=== PATIENT | female | born 1950 | race Caucasian/White ===

== ENCOUNTER 2017-06-11 19:14 | Emergency (ER) | payer OTHER, MEDICAID ==
[~2017-06-11] VITALS: Ht 152.4 cm; Wt 81.6 kg
[~2017-06-11 19:14] MED LIST: ACET325T53 PO; AMIT10TA6 PO; ASPI-1063 PO; BACL10TA PO; DICL100G16 TP; DICL50TA9 PO; DULO60CA64 PO; FAMO20TA8 PO; FLUT16SP24 NS; GLIP10TA74 PO; GLU500 PO; HYDR-3109 PO; INSU100V32 SUBCUT; INSU100V9 SUBCUT; LORA-258 PO; LYR50 PO; METH10TA4 PO; MISO200T PO; NIFE-2 PO; OXYC60TA8 PO; PATANOL BOTH EYES; TRAZ-126 PO; TRIA15CR4 TP; TRIA60LO3 TP; ZOLP12.550 PO
[2017-06-11 19:17] VITALS: BP_SYST 145
[2017-06-11 20:37] LABS: BASOPHILS # (AUTO) 0.1 K/uL (0.0-0.2); BASOPHILS % (AUTO) 0.7 % (0.0-2.0); HEMATOCRIT 38.6 % (36-48); HEMOGLOBIN 12.4 g/dL (12.0-16.0); LYMPHOCYTES # (AUTO) 1.3 K/uL (1.0-5.5); LYMPHOCYTES % (AUTO) 13.9 % (20.5-51.5); MEAN CORPUSCULAR HEMOGLOBIN 28 pg (27-31); MEAN CORPUSCULAR HGB CONC 32 % (32-36); MEAN CORPUSCULAR VOLUME 87 fL (79.0-98.0); MONOCYTES # (AUTO) 0.2 K/uL (0.0-1.0); NEUTROPHILS % (AUTO) 83.4 % (40.0-70.0); PLATELET COUNT (AUTO) 243 K/uL (130-430); RED BLOOD CELL COUNT(AUTO) 4.42 MIL/uL (4.2-6.2); RED CELL DISTRIBUTION WIDTH 14.3 % (9.0-15.0); WHITE BLOOD COUNT (AUTO) 9.6 K/uL (4.8-10.8)
[2017-06-11 20:48] LABS: INR 1.1 (0.8-1.2)
[2017-06-11 20:50] LABS: CALCIUM 9.2 mg/dL (8.4-11.0); CREATININE 0.95 mg/dL (0.55-1.30); POTASSIUM 4.2 mmol/L (3.5-5.1)
[2017-06-11 21:50] VITALS: BP_SYST 144
== END 2017-06-11 21:50 | disposition home or self-care (01) ==
LOC: SED 19:14
DX: R04.0 Epistaxis (principal); E11.9 Type 2 diabetes mellitus without complications; I10 Essential (primary) hypertension; Z79.899 Other long term (current) drug therapy; Z79.4 Long term (current) use of insulin
CPT/HCPCS: 36415; 80048; 85025; 85610-TC; 85730-TC; 93005; 99285

== ENCOUNTER 2018-09-04 12:08 | Inpatient (IN) | payer OTHER, MEDICAID ==
[~2018-09-04] VITALS: Ht 152.4 cm; Wt 80.7 kg
[~2018-09-04 12:08] MED LIST changes: -ASPI-1063 PO; +ASPI-1153 PO; -DICL100G16 TP; +DICL100G19 TP; +GLIP10TA3 PO; -GLIP10TA74 PO; -TRAZ-126 PO; +TRAZ-219 PO; +TRIA60LO13 TP; -TRIA60LO3 TP
[2018-09-04] MEDS ORDERED: NACL 0.9% 1,000 ML IV ONE (12:13)
[2018-09-04] MEDS ORDERED: LEVALBUTEROL HCL 0.63 MG/3 ML VIAL.NEB IH ONE (12:15)
[2018-09-04] MEDS ORDERED: methylPREDNISolone SOD SUCC/PF 62.5 MG/ML VIAL IVP ONE (12:15)
[2018-09-04] MEDS ORDERED: ALBUTEROL SULFATE 0.083% 2.5 MG/3 ML VIAL.NEB IH ONE (12:15)
[2018-09-04] MEDS ORDERED: ONDANSETRON HCL 4 MG/2 ML VIAL IVP ONE (12:15)
[2018-09-04 12:25] VITALS: BP_SYST 142
[2018-09-04] MEDS ORDERED: KETOROLAC TROMETHAMINE 30 MG VIAL IVP ONE (12:45)
[2018-09-04 12:59] LABS: HEMATOCRIT 35.7 % (36-48); HEMOGLOBIN 11.5 g/dL (12.0-16.0); MEAN CORPUSCULAR HEMOGLOBIN 28 pg (27-31); MEAN CORPUSCULAR HGB CONC 32 % (32-36); MEAN CORPUSCULAR VOLUME 86 fL (79.0-98.0); RED BLOOD CELL COUNT(AUTO) 4.17 MIL/uL (4.2-6.2); WHITE BLOOD COUNT (AUTO) 6.4 K/uL (4.8-10.8)
[2018-09-04 13:00] LABS: BASOPHILS % (AUTO) 0.4 % (0.0-2.0); EOSINOPHILS % (AUTO) 0.7 % (0.0-4.0); LYMPHOCYTES # (AUTO) 1.1 K/uL (1.0-5.5); LYMPHOCYTES % (AUTO) 17.2 % (20.5-51.5); MONOCYTES # (AUTO) 0.5 K/uL (0.0-1.0); MONOCYTES % (AUTO) 8.6 % (1.7-9.3); NEUTROPHILS # (AUTO) 4.6 K/uL (1.8-7.7); NEUTROPHILS % (AUTO) 73.1 % (40.0-70.0); PLATELET COUNT (AUTO) 180 K/uL (130-430); RED CELL DISTRIBUTION WIDTH 15.8 % (9.0-15.0)
[2018-09-04 13:11] LABS: CALCIUM 8.8 mg/dL (8.4-11.0); CREATININE 1.06 mg/dL (0.55-1.30); POTASSIUM 4.1 mmol/L (3.5-5.1)
[2018-09-04 13:16] LABS: ALBUMIN 3.5 g/dL (3.4-4.8); TOTAL BILIRUBIN 0.3 mg/dL (0.0-1.0)
[2018-09-04 13:17] LABS: INR 1.1 (0.8-1.2); PROTHROMBIN TIME 10.8 SECS (9.5-12.5)
[2018-09-04 13:27] LABS: BILIRUBIN,URINE NEGATIVE (NEGATIVE); CLARITY/URINE CLEAR (CLEAR); COLOR,URINE YELLOW (YELLOW); GLUCOSE,URINE NEGATIVE (NEGATIVE); KETONES,URINE NEGATIVE (NEGATIVE); LEUKOCYTE ESTERASE ,URINE NEGATIVE (NEGATIVE); NITRITE, URINE NEGATIVE (NEGATIVE); PROTEIN URINE NEGATIVE (NEGATIVE); UROBILINOGEN,URINE 0.2 (0.2-1.0)
[2018-09-04 13:29] LABS: BLOOD, URINE TRACE (NEGATIVE)
[2018-09-04 13:38] LABS: BACTERIA,URINE FEW /HPF (None Seen); MUCUS,URINE None Seen /LPF (None Seen); YEAST,URINE None Seen /HPF (None Seen)
[2018-09-04 13:39] LABS: WBC,URINE 0-3 /HPF (0-3)
[2018-09-04 13:53] LABS: CKMB RELATIVE INDEX 1.8 (0.0-2.9); CREATINE KINASE MB 11.6 ng/mL (0-3.6)
[2018-09-04] MEDS ORDERED: LAM100 PO (16:11)
[2018-09-04] MEDS ORDERED: CALC-823 PO (16:11)
[2018-09-04] MEDS ORDERED: CARB15DR OP (16:11)
[2018-09-04] MEDS ORDERED: INSU100I26 SQ (16:11)
[2018-09-04] MEDS ORDERED: LOSA50TA3 PO (16:11)
[2018-09-04] MEDS ORDERED: SSREG SUBCUT (16:11)
[2018-09-04] MEDS ORDERED: ARIP10TA9 PO (16:11)
[2018-09-04] MEDS ORDERED: TEMA30CA5 PO (16:11)
[2018-09-04] MEDS ORDERED: DULO60CA41 PO (16:11)
[2018-09-04] MEDS ORDERED: POLY17PO4 PO (16:11)
[2018-09-04] MEDS ORDERED: LORA-259 PO (16:11)
[2018-09-04] MEDS ORDERED: HYDR-4274 PO (16:11)
[2018-09-04] MEDS ORDERED: GLU500 PO (16:11)
[2018-09-04] MEDS ORDERED: MAGN400T10 PO (16:11)
[2018-09-04] MEDS ORDERED: MELO15TA13 PO (16:11)
[2018-09-04] MEDS ORDERED: MOME17SP NS (16:11)
[2018-09-04] MEDS ORDERED: TRAZ300T2 PO (16:11)
[2018-09-04] MEDS ORDERED: BACL20TA PO (16:11)
[2018-09-04] MEDS ORDERED: FENO48TA4 PO (16:11)
[2018-09-04] MEDS ORDERED: FLUT16SP16 NS (16:11)
[2018-09-04] MEDS ORDERED: OXYC10TA56 PO (16:11)
[2018-09-04] MEDS ORDERED: ASPIRIN 81 MG TAB.CHEW ONE (16:27)
[2018-09-04] MEDS ORDERED: LORazepam 2 MG/ML VIAL IVP PRN (16:30)
[2018-09-04] MEDS ORDERED: ZOLPIDEM TARTRATE 5 MG TABLET PO PRN (16:30)
[2018-09-04] MEDS ORDERED: MORPHINE 4 MG/ML INJ. SYRINGE IVP PRN (16:30)
[2018-09-04] MEDS ORDERED: HYDROcodone/ACETAMIN 5-325 MG TAB (NORCO/ VICODIN) PO PRN (16:30)
[2018-09-04] MEDS ORDERED: ACETAMINOPHEN 325 MG TABLET PO PRN (16:30)
[2018-09-04] MEDS ORDERED: MILK OF MAGNESIA 30 ML UDC PO PRN (16:30)
[2018-09-04] MEDS ORDERED: ONDANSETRON HCL 4 MG/2 ML VIAL IVP PRN (16:30)
[2018-09-04] MEDS ORDERED: DOCUSATE SODIUM 100 MG CAPSULE PO PRN (16:30)
[2018-09-04] MEDS ORDERED: IPRATROPIUM/ALBUTEROL SULFATE 3 ML AMPUL.NEB (DUONEB) INH PRN (16:30)
[2018-09-04] MEDS ORDERED: MUPIROCIN 2% TOPICAL OINTMENT 22 GM TP PRN (16:30)
[2018-09-04 16:59] VITALS: BP_SYST 139
[2018-09-04] MEDS ORDERED: D5W 1,000 ML IV PRN (17:00)
[2018-09-04] MEDS ORDERED: DEXTROSE 50%-WATER 50 ML DISP.SYRIN IVP PRN (17:00)
[2018-09-04] MEDS ORDERED: GLUCOSE 15 GM GEL (in 37.5 GM TUBE) PO PRN (17:00)
[2018-09-04] MEDS ORDERED: ASPIRIN 81 MG TAB.CHEW PO ONE (17:00)
[2018-09-04] MEDS: NACL 0.9% 1,000 ML IV SCH (17:22)
[2018-09-04] MEDS: INSULIN REGULAR, HUMAN 100 UNITS/ML, 10 ML VIAL (novoLIN R) SUBCUT PRN ×2 (17:28→20:56)
[2018-09-04 17:40] LABS: PHOSPHORUS 2.7 mg/dL (2.7-4.5); THYROID STIMULATING HORMONE 0.15 uIu/mL (0.36-3.74)
[2018-09-04] MEDS ORDERED: TEMAZEPAM 15 MG CAPSULE PO SCH (17:45)
[2018-09-04] MEDS ORDERED: CARBOXYMETHYLCELLULOSE SODIUM OP SCH (17:45)
[2018-09-04] MEDS ORDERED: HYDROcodone/ACETAMIN 10-325 MG TAB PO PRN (17:45)
[2018-09-04 18:06] LABS: CREATINE KINASE MB 9.5 ng/mL (0-3.6)
[2018-09-04 18:11] VITALS: BP_SYST 139
[2018-09-04] MEDS: IPRATROPIUM/ALBUTEROL SULFATE 3 ML AMPUL.NEB (DUONEB) INH SCH (19:31)
[2018-09-04] MEDS: DULoxetine HCL 30 MG CAPSULE.DR (CYMBALTA) PO SCH (19:41)
[2018-09-04] MEDS: metFORMIN HCL 500 MG TABLET PO SCH (19:41)
[2018-09-04] MEDS: BUDESONIDE 0.5 MG/2 ML AMPUL.NEB INH SCH (19:42)
[2018-09-04 20:00] VITALS: BP_SYST 116
[2018-09-04] MEDS: oxyCODONE HCL 10 MG TAB.ER.12H PO SCH (20:53)
[2018-09-04] MEDS: traZODone HCL 50 MG TABLET (DESYREL) PO SCH (20:53)
[2018-09-04] MEDS: METOPROLOL TARTRATE 25 MG TABLET PO SCH (20:53)
[2018-09-04] MEDS: BACLOFEN 10 MG TABLET PO SCH (20:54)
[2018-09-04] MEDS: INSULIN GLARGINE 100 UNITS/ML 10 ML VIAL SUBCUT SCH (20:56)
[2018-09-04] MEDS ORDERED: LamoTRIgine 100 MG TABLET PO SCH (21:00)
[2018-09-04] MEDS ORDERED: CALCIUM CARBONATE/VITAMIN D3 1 TAB TABLET PO SCH (21:00)
[2018-09-04 21:16] LABS: BENZODIAZEPINE, URINE POSITIVE (NEG <=150); OPIATE, URINE POSITIVE (NEG <=100); URINE OXYCODONE SCREEN POSITIVE (NEG <=100)
[2018-09-04 21:17] LABS: BARBITURATE, URINE NEGATIVE (NEG <=200); CANNABINOID, URINE NEGATIVE (NEG <=50); COCAINE, URINE NEGATIVE (NEG <=150); METHAMPHETAMINES SCREEN,URINE NEGATIVE (NEG <=500); PHENCYCLIDINE SCREEN,URINE NEGATIVE (NEG <=25); UR TRICYCLIC ANTIDEPRESSANTS NEGATIVE (NEG <=300); URINE AMPHETAMINE NEGATIVE (NEG <=500); URINE METHADONE NEGATIVE (NEG <=200); URINE PROPOXYPHENE SCREEN NEGATIVE (NEG <=300)
[2018-09-04] MEDS ORDERED: SODIUM CL 3% FOR INHALATION 15 ML VIAL.NEB INH SCH (21:30)
[2018-09-04] MEDS ORDERED: PEG 400/HYPROMELLOSE/GLYCERIN 15 ML DROPS OP PRN (23:15)
[2018-09-05 00:21] VITALS: BP_SYST 100
[2018-09-05 01:25] LABS: CREATINE KINASE MB 6.3 ng/mL (0-3.6)
[2018-09-05] MEDS: IPRATROPIUM/ALBUTEROL SULFATE 3 ML AMPUL.NEB (DUONEB) INH SCH ×4 (01:27→19:44)
[2018-09-05] MEDS: INSULIN REGULAR, HUMAN 100 UNITS/ML, 10 ML VIAL (novoLIN R) SUBCUT PRN ×4 (06:03→21:44)
[2018-09-05] MEDS: BUDESONIDE 0.5 MG/2 ML AMPUL.NEB INH SCH ×2 (07:17→19:44)
[2018-09-05 07:30] LABS: CALCIUM 8.9 mg/dL (8.4-11.0); CREATININE 0.87 mg/dL (0.55-1.30)
[2018-09-05 07:34] LABS: PHOSPHORUS 2.9 mg/dL (2.7-4.5)
[2018-09-05 07:54] LABS: HEMATOCRIT 32.1 % (36-48); HEMOGLOBIN 10.3 g/dL (12.0-16.0); MEAN CORPUSCULAR HEMOGLOBIN 28 pg (27-31); MEAN CORPUSCULAR HGB CONC 32 % (32-36); MEAN CORPUSCULAR VOLUME 87 fL (79.0-98.0); RED BLOOD CELL COUNT(AUTO) 3.71 MIL/uL (4.2-6.2); WHITE BLOOD COUNT (AUTO) 4.2 K/uL (4.8-10.8)
[2018-09-05 07:55] LABS: BASOPHILS % (AUTO) 0.1 % (0.0-2.0); LYMPHOCYTES % (AUTO) 24.3 % (20.5-51.5); MONOCYTES # (AUTO) 0.5 K/uL (0.0-1.0); MONOCYTES % (AUTO) 12.3 % (1.7-9.3); NEUTROPHILS # (AUTO) 2.6 K/uL (1.8-7.7); NEUTROPHILS % (AUTO) 63.3 % (40.0-70.0); PLATELET COUNT (AUTO) 179 K/uL (130-430); RED CELL DISTRIBUTION WIDTH 16.4 % (9.0-15.0)
[2018-09-05 08:00] LABS: CKMB RELATIVE INDEX 1.9 (0.0-2.9); CREATINE KINASE MB 4.1 ng/mL (0-3.6)
[2018-09-05] MEDS: FENOFIBRATE 160 MG TABLET PO SCH (08:07)
[2018-09-05] MEDS: ASPIRIN 81 MG TAB.CHEW PO SCH (08:07)
[2018-09-05] MEDS: methylPREDNISolone SOD SUCC 40 MG/ML VIAL IVP SCH (08:07)
[2018-09-05] MEDS: CALCIUM CARBONATE/VITAMIN D3 1 TAB TABLET PO SCH ×2 (08:08→17:05)
[2018-09-05] MEDS: MELOXICAM 7.5 MG TABLET PO SCH (08:08)
[2018-09-05] MEDS: BACLOFEN 10 MG TABLET PO SCH ×3 (08:08→20:46)
[2018-09-05] MEDS: metFORMIN HCL 500 MG TABLET PO SCH ×2 (08:08→17:05)
[2018-09-05] MEDS: METOPROLOL TARTRATE 25 MG TABLET PO SCH ×2 (08:09→20:48)
[2018-09-05] MEDS: HEPARIN SODIUM,PORCINE 5000 UNITS/ML VIAL SUBCUT SCH ×2 (08:11→20:53)
[2018-09-05] MEDS ORDERED: LamoTRIgine 100 MG TABLET ONE (08:11)
[2018-09-05] MEDS ORDERED: FENOFIBRATE NANOCRYSTALLIZED 48 MG TABLET (TRICOR) PO SCH (09:00)
[2018-09-05] MEDS ORDERED: LOSARTAN POTASSIUM 50 MG TABLET (COZAAR) PO SCH (09:00)
[2018-09-05] MEDS: ARIPiprazole 5 MG TAB PO SCH (10:11)
[2018-09-05] MEDS: oxyCODONE HCL 10 MG TAB.ER.12H PO SCH ×2 (10:12→20:50)
[2018-09-05] MEDS: NACL 0.9% 1,000 ML IV SCH (10:13)
[2018-09-05] MEDS: LOSARTAN POTASSIUM 25 MG TABLET PO SCH (10:15)
[2018-09-05 11:39] VITALS: BP_SYST 123
[2018-09-05 15:48] VITALS: BP_SYST 153
[2018-09-05] MEDS: DULoxetine HCL 30 MG CAPSULE.DR (CYMBALTA) PO SCH (17:05)
[2018-09-05] MEDS: LamoTRIgine 100 MG TABLET ONE ×2 (20:17→20:53)
[2018-09-05 20:43] VITALS: BP_SYST 132
[2018-09-05] MEDS: traZODone HCL 50 MG TABLET (DESYREL) PO SCH (20:47)
[2018-09-05] MEDS: INSULIN GLARGINE 100 UNITS/ML 10 ML VIAL SUBCUT SCH (21:42)
[2018-09-05 22:40] VITALS: BP_SYST 144
[2018-09-06] MEDS: IPRATROPIUM/ALBUTEROL SULFATE 3 ML AMPUL.NEB (DUONEB) INH SCH ×2 (00:37→07:15)
[2018-09-06] MEDS: NACL 0.9% 1,000 ML IV SCH (03:16)
[2018-09-06 06:27] LABS: CALCIUM 9.5 mg/dL (8.4-11.0); CREATININE 0.88 mg/dL (0.55-1.30); POTASSIUM 4.9 mmol/L (3.5-5.1)
[2018-09-06] MEDS: BUDESONIDE 0.5 MG/2 ML AMPUL.NEB INH SCH (07:15)
[2018-09-06 07:32] LABS: HEMATOCRIT 30.8 % (36-48); HEMOGLOBIN 9.9 g/dL (12.0-16.0); RED BLOOD CELL COUNT(AUTO) 3.56 MIL/uL (4.2-6.2); WHITE BLOOD COUNT (AUTO) 6.6 K/uL (4.8-10.8)
[2018-09-06 07:33] LABS: MEAN CORPUSCULAR HEMOGLOBIN 28 pg (27-31); MEAN CORPUSCULAR HGB CONC 32 % (32-36); MEAN CORPUSCULAR VOLUME 87 fL (79.0-98.0); RED CELL DISTRIBUTION WIDTH 16.1 % (9.0-15.0)
[2018-09-06 08:20] VITALS: BP_SYST 161
[2018-09-06] MEDS: methylPREDNISolone SOD SUCC 40 MG/ML VIAL IVP SCH (08:20)
[2018-09-06] MEDS: oxyCODONE HCL 10 MG TAB.ER.12H PO SCH (08:20)
[2018-09-06] MEDS: metFORMIN HCL 500 MG TABLET PO SCH (08:20)
[2018-09-06] MEDS: ARIPiprazole 5 MG TAB PO SCH (08:20)
[2018-09-06] MEDS: METOPROLOL TARTRATE 25 MG TABLET PO SCH (08:21)
[2018-09-06] MEDS: BACLOFEN 10 MG TABLET PO SCH (08:23)
[2018-09-06] MEDS: CALCIUM CARBONATE/VITAMIN D3 1 TAB TABLET PO SCH (08:23)
[2018-09-06] MEDS: ASPIRIN 81 MG TAB.CHEW PO SCH (08:23)
[2018-09-06] MEDS: FENOFIBRATE 160 MG TABLET PO SCH (08:23)
[2018-09-06] MEDS: MELOXICAM 7.5 MG TABLET PO SCH (08:24)
[2018-09-06] MEDS: LOSARTAN POTASSIUM 25 MG TABLET PO SCH (08:25)
[2018-09-06] MEDS: HEPARIN SODIUM,PORCINE 5000 UNITS/ML VIAL SUBCUT SCH (08:26)
[2018-09-06 09:51] LABS: EOSINOPHILS % (AUTO) 0.7 % (0.0-4.0); LYMPHOCYTES % (AUTO) 40.3 % (20.5-51.5); NEUTROPHILS % (AUTO) 49.9 % (40.0-70.0); PLATELET COUNT (AUTO) 193 K/uL (130-430)
[2018-09-06 09:52] LABS: BASOPHILS % (AUTO) 0.1 % (0.0-2.0); LYMPHOCYTES # (AUTO) 2.7 K/uL (1.0-5.5); MONOCYTES # (AUTO) 0.6 K/uL (0.0-1.0); NEUTROPHILS # (AUTO) 3.3 K/uL (1.8-7.7)
[2018-09-06] MEDS ORDERED: cloNIDine HCL 0.1 MG TABLET PO ONE (10:00)
[2018-09-06 10:10] VITALS: BP_SYST 142
[2018-09-06 11:18] VITALS: BP_SYST 166
== END 2018-09-06 11:25 | disposition home or self-care (01) | DRG 202 ==
LOC: SED 12:08 → STU 16:01 → SMU 09-05 23:39
PROVIDERS: ADMIT Family Medicine; ATTEND Family Medicine
DX: J20.8 Acute bronchitis due to other specified organisms (principal); E87.1 Hypo-osmolality and hyponatremia; I24.8 Other forms of acute ischemic heart disease; I10 Essential (primary) hypertension; E11.9 Type 2 diabetes mellitus without complications; E66.9 Obesity, unspecified; M10.9 Gout, unspecified; G44.209 Tension-type headache, unspecified, not intractable; M19.90 Unspecified osteoarthritis, unspecified site; E05.90 Thyrotoxicosis, unspecified without thyrotoxic crisis or storm; E78.5 Hyperlipidemia, unspecified; F32.9 Major depressive disorder, single episode, unspecified; F41.9 Anxiety disorder, unspecified; G89.4 Chronic pain syndrome; M79.7 Fibromyalgia; Z79.82 Long term (current) use of aspirin; Z79.84 Long term (current) use of oral hypoglycemic drugs; Z68.34 Body mass index [BMI] 34.0-34.9, adult
CPT/HCPCS: 36415; 70450-TC; 71045; 73560-TC; 80048; 80053; 80061; 80307; 81000-TC; 82550-TC; 82553-TC; 82962; 83036; 83605; 83690-TC; 83735-TC; 83880; 84100-TC; 84443-TC; 84484; 85025; 85610-TC; 85730-TC; 86710; 87040-TC; 87070-TC; 87205-TC; 93005; 93306; 94640; 94760; 96361; 96374; 96375; 97116-GP; 97530-GP; 99285; G0378; J1030; J1644; J1815; J1885; J2060; J2405; J2930; J7030; J7613; J7614; J7620; J7626

== ENCOUNTER 2022-08-02 11:04 | Emergency (ER) | payer OTHER, MEDICAID ==
[~2022-08-02] VITALS: Ht 165.1 cm; Wt 90.7 kg
[~2022-08-02 11:04] MED LIST changes: -ACET325T53 PO; -AMIT10TA6 PO; +ARIP10TA9 PO; -ASPI-1153 PO; -BACL10TA PO; +BACL20TA PO; +CALC-823 PO; +CARB15DR OP; -DICL100G19 TP; -DICL50TA9 PO; +DULO60CA42 PO; -DULO60CA64 PO; -FAMO20TA8 PO; +FENO48TA8 PO; -FLUT16SP24 NS; -GLIP10TA3 PO; -HYDR-3109 PO; +HYDR-4274 PO; +INSU100I26 SQ; -INSU100V32 SUBCUT; -INSU100V9 SUBCUT; +LAM100 PO; -LORA-258 PO; +LORA-259 PO; +LOSA50TA3 PO; -LYR50 PO; +MAGN400T10 PO; +MELO15TA13 PO; -METH10TA4 PO; -MISO200T PO; -NIFE-2 PO; +OXYC10TA56 PO; -OXYC60TA8 PO; +POLY17PO4 PO; +SSREG SUBCUT; +TEMA30CA5 PO; -TRAZ-219 PO; +TRAZ300T2 PO; -TRIA15CR4 TP; -TRIA60LO13 TP; -ZOLP12.550 PO
[2022-08-02 11:08] VITALS: BP_SYST 146
--- NOTE | 2022-08-02 11:13 | NUR ---
Patient to ER bed 04 to gown for evaluation. Side rails up.
--- NOTE | 2022-08-02 12:20 | NUR ---
Note undone in EDM - 08/02/22 at 1923 by KURT Patient given written and verbal discharge instructions and verbalizes understanding. ER discussed with patient the results and treatment provided. Patient in stable condition. ID arm band removed. Rx of NONE given. Patient educated on pain management and to follow up with PMD. Pain Scale 0/10. Opportunity for questions provided and answered. Medication side effect fact sheet provided.
--- NOTE | 2022-08-02 12:33 | NUR ---
ER at bedside examining patient.
[2022-08-02] MEDS ORDERED: KETOROLAC TROMETHAMINE 60 MG/2 ML VIAL IM ONE (12:45)
--- NOTE | 2022-08-02 13:20 | NUR ---
Patient given written and verbal discharge instructions and verbalizes understanding. ER MD discussed with patient the results and treatment provided. Patient in stable condition. ID arm band removed. Rx of NONE given. Patient educated on pain management and to follow up with PMD. Pain Scale 0/10. Opportunity for questions provided and answered. Medication side effect fact sheet provided.
== END 2022-08-02 12:20 | disposition home or self-care (01) ==
LOC: SED 11:04
DX: R10.9 Unspecified abdominal pain (principal); I10 Essential (primary) hypertension; E11.9 Type 2 diabetes mellitus without complications; Z79.4 Long term (current) use of insulin; Z79.899 Other long term (current) drug therapy
CPT/HCPCS: 99283; 81002; 96372; J1885

== ENCOUNTER 2023-12-02 12:58 | Inpatient (IN) | payer OTHER, MEDICAID ==
[~2023-12-02] VITALS: Ht 152.4 cm; Wt 76.2 kg
[~2023-12-02 12:58] MED LIST changes: +LOSA-413 PO; -LOSA50TA3 PO
[2023-12-02 13:05] VITALS: BP_SYST 116; PULSE 86; RESP 18; TEMP 98.7; O2SAT 96
[2023-12-02 14:35] LABS: BLOOD GAS BASE EXCESS 0.4 mmol/L (-3.0-3.0); BLOOD GAS HCO3 26.5 mmol/L (21.0-27.0)
[2023-12-02 14:38] LABS: ABG O2 SAT% ESTIMATE 93.7 % (94.0-100.0); ALLEN'S TEST POSITIVE (P); BLOOD GAS PCO2 47.9 mmHg (35.0-45.0); BLOOD GAS PO2 71.7 mmHg (75.0-100.0)
[2023-12-02] MEDS: KETOROLAC TROMETHAMINE 30 MG VIAL IVP ONE (14:48)
[2023-12-02 15:20] LABS: BASOPHILS % (AUTO) 0.3 % (0.0-2.0); EOSINOPHILS # (AUTO) 0.4 K/uL (0.0-0.4); EOSINOPHILS % (AUTO) 6.4 % (0.0-4.0); HEMATOCRIT 32.8 % (36-48); LYMPHOCYTES # (AUTO) 1.8 K/uL (1.0-5.5); LYMPHOCYTES % (AUTO) 26.2 % (20.5-51.5); MEAN CORPUSCULAR HEMOGLOBIN 31 pg (27-31); MEAN CORPUSCULAR HGB CONC 34 % (32-36); MEAN CORPUSCULAR VOLUME 92 fL (79.0-98.0); MONOCYTES # (AUTO) 0.8 K/uL (0.0-1.0); MONOCYTES % (AUTO) 11.3 % (1.7-9.3); NEUTROPHILS # (AUTO) 3.9 K/uL (1.8-7.7); NEUTROPHILS % (AUTO) 55.8 % (40.0-70.0); PLATELET COUNT (AUTO) 139 K/uL (130-430); RED BLOOD CELL COUNT(AUTO) 3.55 MIL/uL (4.2-6.2); RED CELL DISTRIBUTION WIDTH 13.6 % (9.0-15.0)
[2023-12-02 15:23] LABS: ALANINE AMINOTRANSFERASE 13 U/L (12-78); ANION GAP 8 (5-15); ASPARTATE AMINOTRANSFERASE 15 U/L (10-37); CALCIUM 7.7 mg/dL (8.4-11.0); CARBON DIOXIDE 29 mmol/L (23-29); CHLORIDE 99 mmol/L (98-107); CREATININE 1.27 mg/dL (0.55-1.30); GLUCOSE 139 mg/dL (74-106); POTASSIUM 4.2 mmol/L (3.5-5.1); SODIUM SERUM 136 mmol/L (136-145); TOTAL BILIRUBIN 0.3 mg/dL (0.0-1.0); TOTAL PROTEIN, SERUM 6.7 g/dL (6.4-8.3); UREA NITROGEN, BLOOD 21 mg/dL (8-21)
[2023-12-02 15:25] LABS: BILIRUBIN,DIRECT 0.1 mg/dL (0.0-0.3)
[2023-12-02 16:20] VITALS: PULSE 85; O2SAT 95
[2023-12-02] MEDS ORDERED: LORazepam 2 MG/ML VIAL IVP PRN (16:30)
[2023-12-02] MEDS ORDERED: MUPIROCIN 2% TOPICAL OINTMENT 22 GM NS PRN (16:30)
[2023-12-02] MEDS ORDERED: DEXTROSE 50% JECT 50 ML DISP.SYRIN IVP PRN (16:30)
[2023-12-02] MEDS ORDERED: ONDANSETRON HCL 4 MG/2 ML VIAL IVP PRN (16:30)
[2023-12-02] MEDS ORDERED: MAGNESIUM SULFATE 50 ML IV PRN (16:30)
[2023-12-02] MEDS ORDERED: IPRATROPIUM/ALBUTEROL SULFATE 3 ML AMPUL.NEB (DUONEB) INH PRN (16:30)
[2023-12-02] MEDS ORDERED: DOCUSATE SODIUM 100 MG CAPSULE PO PRN (16:30)
[2023-12-02] MEDS ORDERED: POTASSIUM CHLORIDE 20 MEQ TABLET.ER PO PRN (16:30)
[2023-12-02] MEDS ORDERED: MORPHINE 2 MG/ML INJ. SYRINGE IVP PRN (16:30)
[2023-12-02] MEDS ORDERED: iohexoL 350 mgI/mL, 100 ML INFUS..BTL IV ONE (16:39)
[2023-12-02] MEDS ORDERED: ACETAMINOPHEN 500 MG TABLET PO PRN ×2 (16:45)
[2023-12-02 17:10] LABS: BILIRUBIN,URINE NEGATIVE (NEGATIVE); BLOOD, URINE 1+ (NEGATIVE); CLARITY/URINE CLEAR (CLEAR); COLOR,URINE YELLOW (YELLOW); GLUCOSE,URINE NEGATIVE (NEGATIVE); KETONES,URINE NEGATIVE (NEGATIVE); LEUKOCYTE ESTERASE ,URINE NEGATIVE (NEGATIVE); NITRITE, URINE NEGATIVE (NEGATIVE); PROTEIN URINE NEGATIVE (NEGATIVE); UROBILINOGEN,URINE 0.2 (0.2-1.0)
[2023-12-02 17:33] LABS: BACTERIA,URINE RARE /HPF (None Seen)
[2023-12-02] MEDS: DULoxetine HCL 30 MG CAPSULE.DR (CYMBALTA) PO SCH (18:00)
[2023-12-02 18:29] LABS: INR 1.1 (0.8-1.2); PROTHROMBIN TIME 11.7 SECS (9.5-12.5)
[2023-12-02] MEDS: HEPARIN SODIUM,PORCINE 5,000 UNITS/ML VIAL SUBCUT SCH (21:00)
[2023-12-02] MEDS: LamoTRIgine 100 MG TABLET PO SCH (21:00)
[2023-12-02] MEDS: traZODone HCL 50 MG TABLET (DESYREL) PO SCH (21:00)
[2023-12-02] MEDS: ZOLPIDEM TARTRATE 5 MG TABLET PO PRN (22:43)
[2023-12-03 04:54] LABS: BASOPHILS % (AUTO) 0.4 % (0.0-2.0); EOSINOPHILS # (AUTO) 0.5 K/uL (0.0-0.4); EOSINOPHILS % (AUTO) 8.8 % (0.0-4.0); HEMATOCRIT 34.6 % (36-48); HEMOGLOBIN 11.5 g/dL (12.0-16.0); LYMPHOCYTES # (AUTO) 1.4 K/uL (1.0-5.5); LYMPHOCYTES % (AUTO) 25.5 % (20.5-51.5); MEAN CORPUSCULAR HEMOGLOBIN 31 pg (27-31); MEAN CORPUSCULAR HGB CONC 33 % (32-36); MEAN CORPUSCULAR VOLUME 93 fL (79.0-98.0); MONOCYTES # (AUTO) 0.6 K/uL (0.0-1.0); MONOCYTES % (AUTO) 11.6 % (1.7-9.3); NEUTROPHILS % (AUTO) 53.7 % (40.0-70.0); PLATELET COUNT (AUTO) 148 K/uL (130-430); RED BLOOD CELL COUNT(AUTO) 3.72 MIL/uL (4.2-6.2); RED CELL DISTRIBUTION WIDTH 13.7 % (9.0-15.0); WHITE BLOOD COUNT (AUTO) 5.5 K/uL (4.8-10.8)
[2023-12-03 05:16] LABS: ANION GAP 6 (5-15); CALCIUM 8.2 mg/dL (8.4-11.0); CARBON DIOXIDE 29 mmol/L (23-29); CHLORIDE 100 mmol/L (98-107); CREATININE 1.05 mg/dL (0.55-1.30); GLUCOSE 117 mg/dL (74-106); POTASSIUM 4.6 mmol/L (3.5-5.1); SODIUM SERUM 135 mmol/L (136-145); UREA NITROGEN, BLOOD 22 mg/dL (8-21)
[2023-12-03] MEDS ORDERED: MORPHINE 2 MG/ML INJ. SYRINGE ONE (05:51)
[2023-12-03] MEDS: MORPHINE 2 MG/ML INJ. SYRINGE IVP PRN (05:52)
[2023-12-03] MEDS ORDERED: ACETAMINOPHEN 500 MG TABLET ONE ×2 (08:10→14:15)
[2023-12-03] MEDS: ACETAMINOPHEN 500 MG TABLET PO PRN (08:13)
[2023-12-03] MEDS: ARIPiprazole 5 MG TAB PO SCH (09:02)
[2023-12-03] MEDS: LOSARTAN POTASSIUM 50 MG TABLET (COZAAR) PO SCH (09:07)
[2023-12-03] MEDS ORDERED: HEPARIN SODIUM,PORCINE 5,000 UNITS/ML VIAL ONE (09:23)
[2023-12-03] MEDS ORDERED: predniSONE 20 MG TABLET ONE (10:16)
[2023-12-03] MEDS: predniSONE 20 MG TABLET PO ONE (10:16)
[2023-12-03] MEDS ORDERED: INSULIN Lispro 100 UNITS/ML, 3 ML VIAL (humaLOG) ONE (17:38)
[2023-12-03] MEDS: INSULIN LISPRO SLIDING SCALE 100 UNITS/ML, 3 ML VIAL (humaLOG) SUBCUT PRN (17:43)
[2023-12-03 21:45] VITALS: BP_SYST 155; PULSE 72; RESP 16; TEMP 98.8; O2SAT 97
[2023-12-03] MEDS: predniSONE 20 MG TABLET PO SCH (23:03)
[2023-12-04 01:00] VITALS: BP_SYST 171; PULSE 71; RESP 16; TEMP 97.5; O2SAT 97
[2023-12-04 05:34] LABS: BASOPHILS % (AUTO) 0.1 % (0.0-2.0); HEMOGLOBIN 12.9 g/dL (12.0-16.0); LYMPHOCYTES # (AUTO) 0.7 K/uL (1.0-5.5); LYMPHOCYTES % (AUTO) 10.5 % (20.5-51.5); MEAN CORPUSCULAR HEMOGLOBIN 31 pg (27-31); MEAN CORPUSCULAR HGB CONC 33 % (32-36); MEAN CORPUSCULAR VOLUME 93 fL (79.0-98.0); MONOCYTES # (AUTO) 0.1 K/uL (0.0-1.0); MONOCYTES % (AUTO) 1.2 % (1.7-9.3); NEUTROPHILS # (AUTO) 5.7 K/uL (1.8-7.7); NEUTROPHILS % (AUTO) 88.2 % (40.0-70.0); PLATELET COUNT (AUTO) 175 K/uL (130-430); RED BLOOD CELL COUNT(AUTO) 4.19 MIL/uL (4.2-6.2); RED CELL DISTRIBUTION WIDTH 13.6 % (9.0-15.0); WHITE BLOOD COUNT (AUTO) 6.5 K/uL (4.8-10.8)
[2023-12-04 05:43] LABS: ANION GAP 8 (5-15); CALCIUM 9.4 mg/dL (8.4-11.0); CARBON DIOXIDE 29 mmol/L (23-29); CHLORIDE 99 mmol/L (98-107); CREATININE 0.88 mg/dL (0.55-1.30); GLUCOSE 155 mg/dL (74-106); POTASSIUM 4.5 mmol/L (3.5-5.1); SODIUM SERUM 136 mmol/L (136-145); UREA NITROGEN, BLOOD 13 mg/dL (8-21)
[2023-12-04 08:00] VITALS: BP_SYST 146; PULSE 87; RESP 18; TEMP 98.4; O2SAT 98
[2023-12-04] MEDS: HYDROcodone/ACETAMIN 5-325 MG TAB (NORCO/ VICODIN) PO PRN (09:56)
[2023-12-04 12:00] VITALS: BP_SYST 153; PULSE 82; RESP 18; TEMP 98.8; O2SAT 97
[2023-12-04 16:53] VITALS: BP_SYST 157; PULSE 81; RESP 18; TEMP 97.6; O2SAT 91
[2023-12-04 20:00] VITALS: BP_SYST 149; PULSE 75; RESP 18; TEMP 98.8; O2SAT 95
[2023-12-05 00:02] VITALS: BP_SYST 138; PULSE 72; RESP 18; TEMP 97.9; O2SAT 98
[2023-12-05 06:11] LABS: BASOPHILS % (AUTO) 0.1 % (0.0-2.0); HEMATOCRIT 38.6 % (36-48); HEMOGLOBIN 13.6 g/dL (12.0-16.0); LYMPHOCYTES # (AUTO) 1.1 K/uL (1.0-5.5); LYMPHOCYTES % (AUTO) 18.6 % (20.5-51.5); MEAN CORPUSCULAR HEMOGLOBIN 32 pg (27-31); MEAN CORPUSCULAR HGB CONC 35 % (32-36); MEAN CORPUSCULAR VOLUME 92 fL (79.0-98.0); MONOCYTES # (AUTO) 0.2 K/uL (0.0-1.0); MONOCYTES % (AUTO) 3.3 % (1.7-9.3); NEUTROPHILS # (AUTO) 4.7 K/uL (1.8-7.7); PLATELET COUNT (AUTO) 192 K/uL (130-430); RED BLOOD CELL COUNT(AUTO) 4.22 MIL/uL (4.2-6.2); RED CELL DISTRIBUTION WIDTH 13.8 % (9.0-15.0)
[2023-12-05 06:14] LABS: ANION GAP 8 (5-15); CALCIUM 9.7 mg/dL (8.4-11.0); CARBON DIOXIDE 29 mmol/L (23-29); CHLORIDE 100 mmol/L (98-107); CREATININE 1.02 mg/dL (0.55-1.30); GLUCOSE 134 mg/dL (74-106); POTASSIUM 4.1 mmol/L (3.5-5.1); SODIUM SERUM 137 mmol/L (136-145); UREA NITROGEN, BLOOD 16 mg/dL (8-21)
[2023-12-05 08:24] VITALS: BP_SYST 158; PULSE 83; RESP 18; TEMP 96.6; O2SAT 97
[2023-12-05] MEDS ORDERED: BUDE6HFA INH (09:36)
[2023-12-05] MEDS ORDERED: BUDE10.32 INH (09:37)
[2023-12-05 11:22] VITALS: BP_SYST 159; PULSE 82; RESP 17; TEMP 98.1; O2SAT 96
== END 2023-12-05 12:05 | disposition home health service (06) | DRG 189 ==
LOC: SED 12:58 → SMU 16:21
PROVIDERS: ADMIT General Practice; ATTEND General Practice
DX: J96.02 Acute respiratory failure with hypercapnia (principal); J44.1 Chronic obstructive pulmonary disease with (acute) exacerbation; E44.1 Mild protein-calorie malnutrition; F11.20 Opioid dependence, uncomplicated; E11.9 Type 2 diabetes mellitus without complications; F32.A Depression, unspecified; E66.9 Obesity, unspecified; E78.5 Hyperlipidemia, unspecified; G44.209 Tension-type headache, unspecified, not intractable; I10 Essential (primary) hypertension; Z87.891 Personal history of nicotine dependence; Z79.899 Other long term (current) drug therapy; Z79.84 Long term (current) use of oral hypoglycemic drugs; Z68.32 Body mass index [BMI] 32.0-32.9, adult; M62.838 Other muscle spasm
CPT/HCPCS: 36415; 36600; 70450-TC; 71045; 71275; 80048; 80076; 81000; 81001; 81015; 82803; 82948; 83037; 83735; 84484; 85025; 85379; 85610; 85730; 93005; 97116-GP; 97530-GP; 99285; J1644; J1885; J2270; J7512; Q9967